=== PATIENT | male | born 1990 | race Caucasian/White ===

== ENCOUNTER 2016-10-01 01:25 | Emergency (ER) | payer SELFPAY ==
--- NOTE | 2016-10-01 03:39 | ED CLINICAL REPORT ---
Clinical Report - Physicians/Mid Levels [facility] [address] [place] [address] 10/01/2016 1:27 Patient: RAYMOND SANCHEZ Time Seen: 02:41 Oct 01 2016. Arrived- By private vehicle. Historian- patient. CPT: ER phys charges level 4 (#[id number]). HISTORY OF PRESENT ILLNESS Chief Complaint: BACK PAIN. It is described as being moderate in degree and in the area of the mid lumbar spine. The quality is noted to be sharp, aching and "pain". Onset- 2 days RECORD CLERK; ( pt complains of lower center back pain, started two days ago). This started yesterday. No history of recent trauma. and it is still present. No bladder dysfunction, bowel dysfunction, sensory loss or motor loss. Patient denies an injury. No other injury. Similar symptoms previously: None. Recent medical care: Not recently seen/assessed. REVIEW OF SYSTEMS No fever, chills, eye irritation, difficulty with urination or urinary frequency. No hematuria, skin rash, sore throat, cough or difficulty breathing. No chest pain, abdominal pain, nausea, vomiting or diarrhea. No black stools. All systems otherwise negative, except as recorded above. PAST HISTORY Has had back injury. He has had prior back pain. Medications: None. Allergies: No Known Drug Allergy. SOCIAL HISTORY Heavy tobacco smoker (cigarette)- less than 1 pack per day. No alcohol use or drug use. ADDITIONAL NOTES The nursing notes have been reviewed. PHYSICAL EXAM Vital Signs: 10/01/2016 01:36 BP: 143/93. HR: 100. RR: 16. O2 saturation: 98%. Temp: 98.4 F. Appearance: Alert. Patient in mild distress. HEENT: Normal external inspection. ENT: Pharynx normal. Neck: Normal inspection. Neck nontender. Painless ROM. CVS: Heart sounds normal. Pulses normal. Respiratory: No respiratory distress. Breath sounds normal. Abdomen: No visible injury. Soft and nontender. Back: Normal inspection. No tenderness. Painless ROM. Skin: Skin warm. Normal skin color. No rash. Extremities: Extremities exhibit normal ROM. Extremities nontender. Neuro: Oriented X 3. Mood/affect normal. No motor deficit. No sensory deficit. Reflexes normal. LABS, X-RAYS, AND EKG Laboratory Tests: UA-Culture if indicated: (SLOANE: 10/01/2016 03:00) ( Mscvd 10/01/2016 03:11) Final results Test Result Flag Units (Reference) URINE COLOR YELLOW URINE APPEARANCE CLEAR URINE GLUCOSE NEGATIVE (NEGATIVE) URINE BILIRUBIN NEGATIVE (NEGATIVE) URINE KETONE NEGATIVE (NEGATIVE) URINE SPECIFIC GRAVITY >= 1.030 (1.010-1.030) URINE PH 6.0 (5.0-8.0) URINE PROTEIN NEGATIVE (NEGATIVE) URINE UROBILINOGEN 0.2 EU/dL (0.2-1.0) URINE NITRITE NEGATIVE (NEGATIVE) URINE BLOOD TRACE-LYSED (NEGATIVE) URINE LEUK ESTERASE POSITIVE (NEGATIVE) URINE RBC 0-1 rbc/hpf (0-1) URINE WBC 25-50 wbc/hpf (0-1) URINE EPITHELIAL CELLS 0-1 EPI/hpf (0-5) URINE BACTERIA MODERATE (2+ TO 3+) (NONE SEEN) URINE COMMENT CULTURE INDICATED URINE CULTURES ARE SET-UP BASED ON THE FOLLOWING CRITERIA:POSITIVE NITRITEPOSITIVE LEUKOCYTE ESTERASEGREATER THAN 10 WHITE BLOOD CELLSMODERATE (2+) OR GREATER BACTERIA CBC w Diff: (SLOANE: 10/01/2016 03:02) [facility]) Final results Test Result Flag Units (Reference) WHITE BLOOD COUNT 10.8 K/uL (4.5-11.5) RED BLOOD COUNT 4.68 M/uL (4.50-5.90) HEMOGLOBIN 13.3 L gm/dL (13.5-17.5) HEMATOCRIT 40.4 L % (41.0-53.0) MEAN CELL VOLUME 86 fL (80-100) MEAN CORPUSCULAR HGB 28 pg (26-34) MEAN CORPUSCULAR HGB CONC 33 g/dL (31-37) RED CELL DISTRIBUTION WIDTH 14.1 % (11.6-14.8) PLATELET COUNT 336 K/uL (150-400) NEUTROPHIL % 43.9 L % (50-75) LYMPH % 42.4 H % (25-40) MONO % 8.8 % (3-14) EOSINOPHIL % 4.6 H % (0-4) BASOPHIL % 0.3 % (0-2) [id number]: (SLOANE: 10/01/2016 03:02) ( MsgRcvd 10/01/2016 03:18) Final results Test Result Flag Units (Reference) C-REACTIVE PROTEIN < 0.2 mg/dL (0.0-0.9) . PROGRESS AND PROCEDURES Course of Care: Levaquin 750 mg po Vicodin 2 po Patient is stable. Patient/family counseled. Disposition: Discharged. Condition: stable. CLINICAL IMPRESSION Acute urinary tract infection with cystitis and pyelonephritis. Nontraumatic lumbar back pain. INSTRUCTIONS No strenuous activity. Drink plenty of fluids. Warnings: GENERAL WARNINGS: Return or contact your physician immediately if your condition worsens or changes unexpectedly, if not improving as expected, or if other problems arise. Prescription Medications: Hydrocodone/APAP 5mg/325mg: take 1 to 2 orally every 6 hours as needed for pain. Dispense fifteen (15). No refills. Levaquin 500 mg: take 1 tab orally every day for 10 days. No refills. Follow-up: Follow up with your doctor in three days. Call for an appointment. Understanding of the discharge instructions verbalized by patient. (Electronically signed by Ammon Schwartz MD 10/04/2016 0:23)
--- NOTE | 2016-10-01 03:39 | ED NURSING NOTES ---
Clinical Report - Nurses [place] [address] [place] [address] 10/01/2016 1:27 Patient: RAYMOND SANCHEZ TRIAGE Triage time 01:36. Acuity: LEVEL 4. Chief Complaint: BACK PAIN. Alert. No acute distress. --01:40 TonyaB, R.N. 01:36 10/01/16. BP: 143/93. HR: 100. RR: 16. O2 saturation: 98%. Temp: 98.4 F. Pain level now 02/06. --01:40 TonyaB R.N. Weight: 81.6 kg. Height/Length: 72 inches. BMI: 24.4. --01:38 TonyaB, R.N. Medications None. --01:38 TonyaB R.N. Allergies No Known Drug Allergy. --01:38 TonZaki R.N. History Arrived by private vehicle. Historian: patient. Accompanied by friend. ( pt complains of lower center back pain, started two days ago). This started yesterday. No history of recent trauma. Treatment EMBEDDED SOFTWARE DEVELOPMENT ENGINEER: None. PAST MEDICAL HX: Tetanus status: up-to-date. Immunizations: up-to-date. SOCIAL HX: Current every day smoker. No alcohol use or drug use. No infectious disease exposure. ABUSE ASSESSMENT: No report of abuse. SELF HARM ASSESSMENT: A self harm assessment was performed. The patient answered "no" to the question "Have you recently felt down, depressed, or hopeless?", "Have you noticed less interest or pleasure in doing things?", "Do you have thoughts of harming or killing yourself?", "Are you here because you tried to hurt yourself?", "Have you ever tried to hurt yourself before today?", "Have you recently had thoughts about harming or killing others?" and "Do you have any dangerous items in your possession?". FALL RISK ASSESSMENT: Fall risk assessment completed. No fall risk identified. NUTRITIONAL RISK ASSESSMENT: The nutritional risk assessment revealed no deficiencies. FUNCTIONAL ASSESSMENT: Functional assessment: no impairments noted. LEARNING NEEDS ASSESSMENT: The learning needs assessment revealed no barriers. SKIN INTEGRITY ASSESSMENT: Skin integrity risk assessment completed. No skin integrity risk identified. --01:40 Castillo Carter Interventions ID band on patient. To treatment room. --01:40 Castillo Carter PHYSICAL ASSESSMENT GENERAL / NEURO / PSYCH: Alert. Oriented X 4. Appears in no acute distress. RESPIRATORY: Respirations not labored. Chest nontender. Breath sounds within normal limits. CVS: Normal heart rate and rhythm. Capillary refill less than 2 seconds. GI / : Abdomen soft and nontender. Bowel sounds within normal limits. EXTREMITIES: Sensation intact in extremities. ROM of extremities within normal limits. BACK: Normal inspection of the neck and back. ROM of neck and back within normal limits. --01:41 Castillo Carter NURSING PROGRESS NOTES 03:56 10/01/2016 Hydrocodone-APAP (Hydrocodone-Acetaminophen) PO 10/650 mg Tablets 2 tab given. Allergies verified, confirmed 5 rights and sedative warning given to the patient. --03:56 Maynor Rosenthal R.N. 03:56 10/01/2016 Levaquin (Levofloxacin) PO 750 mg given. Allergies verified and confirmed 5 rights. --03:56 Maynor Rosenthal R.N. DISPOSITION / DISCHARGE Departure time: 0358. Condition at departure: improved. No learning barriers present. Discharge instructions provided and reviewed with the patient. Reviewed warnings. Reviewed medication(s). Treatments reviewed. Reviewed referrals. Activity restrictions reviewed. Work note given. Patient verbalized understanding. The patient was discharged by the physician. He was discharged home and unaccompanied at time of discharge. He left the Emergency Department ambulatory and via private vehicle. Family member driving. FALL RISK ASSESSMENT: Fall risk assessment completed. No fall risk identified. --03:57 Maynor Rosenthal R.N. 03:56 10/01/16. BP: 138/88. HR: 88. RR: 18. O2 saturation: 98%. Temp: 98 F. Pain level now 6/10. --03:57 Maynor Rosenthal R.N. Locked/Released at 10/01/2016 3:58 by Maynor Rosenthal R.N.
--- NOTE | 2016-10-01 03:39 | ED CLINICAL REPORT ---
Clinical Report - Physicians/Mid Levels [facility] [address] [place] [address] 10/01/2016 1:27 Patient: RAYMOND SANCHEZ Time Seen: 02:41 Oct 01 2016. Arrived- By private vehicle. Historian- patient. CPT: ER phys charges level 4 (#[id number]). HISTORY OF PRESENT ILLNESS Chief Complaint: BACK PAIN. It is described as being moderate in degree and in the area of the mid lumbar spine. The quality is noted to be sharp, aching and "pain". Onset- 2 days NURSE RECEPTIONIST; ( pt complains of lower center back pain, started two days ago). This started yesterday. No history of recent trauma. and it is still present. No bladder dysfunction, bowel dysfunction, sensory loss or motor loss. Patient denies an injury. No other injury. Similar symptoms previously: None. Recent medical care: Not recently seen/assessed. REVIEW OF SYSTEMS No fever, chills, eye irritation, difficulty with urination or urinary frequency. No hematuria, skin rash, sore throat, cough or difficulty breathing. No chest pain, abdominal pain, nausea, vomiting or diarrhea. No black stools. All systems otherwise negative, except as recorded above. PAST HISTORY Has had back injury. He has had prior back pain. Medications: None. Allergies: No Known Drug Allergy. SOCIAL HISTORY Heavy tobacco smoker (cigarette)- less than 1 pack per day. No alcohol use or drug use. ADDITIONAL NOTES The nursing notes have been reviewed. PHYSICAL EXAM Vital Signs: 10/01/2016 01:36 BP: 143/93. HR: 100. RR: 16. O2 saturation: 98%. Temp: 98.4 F. Appearance: Alert. Patient in mild distress. HEENT: Normal external inspection. ENT: Pharynx normal. Neck: Normal inspection. Neck nontender. Painless ROM. CVS: Heart sounds normal. Pulses normal. Respiratory: No respiratory distress. Breath sounds normal. Abdomen: No visible injury. Soft and nontender. Back: Normal inspection. No tenderness. Painless ROM. Skin: Skin warm. Normal skin color. No rash. Extremities: Extremities exhibit normal ROM. Extremities nontender. Neuro: Oriented X 3. Mood/affect normal. No motor deficit. No sensory deficit. Reflexes normal. LABS, X-RAYS, AND EKG Laboratory Tests: UA-Culture if indicated: (SLOANE: 10/01/2016 03:00) ( Mscvd 10/01/2016 03:11) Final results Test Result Flag Units (Reference) URINE COLOR YELLOW URINE APPEARANCE CLEAR URINE GLUCOSE NEGATIVE (NEGATIVE) URINE BILIRUBIN NEGATIVE (NEGATIVE) URINE KETONE NEGATIVE (NEGATIVE) URINE SPECIFIC GRAVITY >= 1.030 (1.010-1.030) URINE PH 6.0 (5.0-8.0) URINE PROTEIN NEGATIVE (NEGATIVE) URINE UROBILINOGEN 0.2 EU/dL (0.2-1.0) URINE NITRITE NEGATIVE (NEGATIVE) URINE BLOOD TRACE-LYSED (NEGATIVE) URINE LEUK ESTERASE POSITIVE (NEGATIVE) URINE RBC 0-1 rbc/hpf (0-1) URINE WBC 25-50 wbc/hpf (0-1) URINE EPITHELIAL CELLS 0-1 EPI/hpf (0-5) URINE BACTERIA MODERATE (2+ TO 3+) (NONE SEEN) URINE COMMENT CULTURE INDICATED URINE CULTURES ARE SET-UP BASED ON THE FOLLOWING CRITERIA:POSITIVE NITRITEPOSITIVE LEUKOCYTE ESTERASEGREATER THAN 10 WHITE BLOOD CELLSMODERATE (2+) OR GREATER BACTERIA CBC w Diff: (SLOANE: 10/01/2016 03:02) ( [facility] [place]) Final results Test Result Flag Units (Reference) WHITE BLOOD COUNT 10.8 K/uL (4.5-11.5) RED BLOOD COUNT 4.68 M/uL (4.50-5.90) HEMOGLOBIN 13.3 L gm/dL (13.5-17.5) HEMATOCRIT 40.4 L % (41.0-53.0) MEAN CELL VOLUME 86 fL (80-100) MEAN CORPUSCULAR HGB 28 pg (26-34) MEAN CORPUSCULAR HGB CONC 33 g/dL (31-37) RED CELL DISTRIBUTION WIDTH 14.1 % (11.6-14.8) PLATELET COUNT 336 K/uL (150-400) NEUTROPHIL % 43.9 L % (50-75) LYMPH % 42.4 H % (25-40) MONO % 8.8 % (3-14) EOSINOPHIL % 4.6 H % (0-4) BASOPHIL % 0.3 % (0-2) [id number]: (SLOANE: 10/01/2016 03:02) ( MsgRcvd 10/01/2016 03:18) Final results Test Result Flag Units (Reference) C-REACTIVE PROTEIN < 0.2 mg/dL (0.0-0.9) . PROGRESS AND PROCEDURES Course of Care: Levaquin 750 mg po Vicodin 2 po Patient is stable. Patient/family counseled. Disposition: Discharged. Condition: stable. CLINICAL IMPRESSION Acute urinary tract infection with cystitis and pyelonephritis. Nontraumatic lumbar back pain. INSTRUCTIONS No strenuous activity. Drink plenty of fluids. Warnings: GENERAL WARNINGS: Return or contact your physician immediately if your condition worsens or changes unexpectedly, if not improving as expected, or if other problems arise. Prescription Medications: Hydrocodone/APAP 5mg/325mg: take 1 to 2 orally every 6 hours as needed for pain. Dispense fifteen (15). No refills. Levaquin 500 mg: take 1 tab orally every day for 10 days. No refills. Follow-up: Follow up with your doctor in three days. Call for an appointment. Understanding of the discharge instructions verbalized by patient. (Electronically signed by Ammon Schwartz MD 10/04/2016 0:23)
--- NOTE | 2016-10-01 03:39 | ED ORDER SUMMARY ---
..... Patient: RAYMOND SANCHEZ OrderSheet [facility] VisitID: [id number] [place] [address] 26y, M Registration Date/Time: 10/01/2016 ORDER SHEET Weight: 81.6 kg Allergies: No Known Drug Allergy GENERAL ORDERS: Chest 2V Urgent (02:46 10/01/2016 Gerson LOPEZ) (Ack 2:52 Sravani) (3:02 Jazzy) GC/Chlamydia, Urine (Urine, Clean Catch) (cup) Urgent (02:46 10/01/2016 Gerson LOPEZ) (Ack 2:52 Sravani) (3:07 TBowen R.N.) UA-Culture if indicated Urgent (02:47 10/01/2016 Gerson LOPEZ) (Ack 2:52 Sravani) (3:07 TBjamalen R.N.) CBC w Diff Urgent (02:47 10/01/2016 Gerson LOPEZ) (Ack 2:52 Sravani) (3:07 TBowen R.N.) CRP Urgent (02:47 10/01/2016 Gerson LOPEZ) (Ack 2:52 Sravani) (3:07 TBowen R.N.) MEDICATION ORDERS: Levaquin PO 750 mg (NOW) (03:36 10/01/2016 Gerson LOPEZ) (3:56 Marky R.N.) Hydrocodone-APAP PO 10/650 mg (NOW) (03:37 10/01/2016 Gerson LOPEZ) (3:56 Marky R.N.) IV FLUIDS: ORDER SHEET NOTES: [Electronically signed by Maynor Rosenthal R.N. (03:58 10/01/2016)] [Electronically signed by Ammon Schwartz MD (00:23 10/04/2016)] [Electronically locked/signed by Maynor Rosenthal R.N. (03:58 10/01/2016)]
--- NOTE | 2016-10-01 03:39 | ED ORDER SUMMARY ---
..... Patient: RAYMOND SANCHEZ OrderSheet [facility] VisitID: [id number] [place] [address] 26y, M Registration Date/Time: 10/01/2016 ORDER SHEET Weight: 81.6 kg Allergies: No Known Drug Allergy GENERAL ORDERS: Chest 2V Urgent (02:46 10/01/2016 Gerson LOPEZ) (Ack 2:52 Sravani) (3:02 Jazzy) GC/Chlamydia, Urine (Urine, Clean Catch) (cup) Urgent (02:46 10/01/2016 Gerson LOPEZ) (Ack 2:52 Sravani) (3:07 TBowen R.N.) UA-Culture if indicated Urgent (02:47 10/01/2016 Gerson LOPEZ) (Ack 2:52 Sravani) (3:07 TBjamalen R.N.) CBC w Diff Urgent (02:47 10/01/2016 Gerson LOPEZ) (Ack 2:52 Sravani) (3:07 TBowen R.N.) CRP Urgent (02:47 10/01/2016 Gerson LOPEZ) (Ack 2:52 Sravani) (3:07 TBowen R.N.) MEDICATION ORDERS: Levaquin PO 750 mg (NOW) (03:36 10/01/2016 Gerson LOPEZ) (3:56 Marky R.N.) Hydrocodone-APAP PO 10/650 mg (NOW) (03:37 10/01/2016 Gerson LOPEZ) (3:56 Marky R.N.) IV FLUIDS: ORDER SHEET NOTES: [Electronically signed by Maynor Rosenthal R.N. (03:58 10/01/2016)] [Electronically signed by Ammon Schwartz MD (00:23 10/04/2016)] [Electronically locked/signed by Maynor Rosenthal R.N. (03:58 10/01/2016)]
--- NOTE | 2016-10-01 03:39 | ED NURSING NOTES ---
Clinical Report - Nurses [place] [address] [place] [address] 10/01/2016 1:27 Patient: RAYMOND SANCHEZ TRIAGE Triage time 01:36. Acuity: LEVEL 4. Chief Complaint: BACK PAIN. Alert. No acute distress. --01:40 TonyaB, R.N. 01:36 10/01/16. BP: 143/93. HR: 100. RR: 16. O2 saturation: 98%. Temp: 98.4 F. Pain level now 02/06. --01:40 TonyaB R.N. Weight: 81.6 kg. Height/Length: 72 inches. BMI: 24.4. --01:38 TonyaB, R.N. Medications None. --01:38 TonyaB R.N. Allergies No Known Drug Allergy. --01:38 TonZaki R.N. History Arrived by private vehicle. Historian: patient. Accompanied by friend. ( pt complains of lower center back pain, started two days ago). This started yesterday. No history of recent trauma. Treatment MEDICAL SALES: None. PAST MEDICAL HX: Tetanus status: up-to-date. Immunizations: up-to-date. SOCIAL HX: Current every day smoker. No alcohol use or drug use. No infectious disease exposure. ABUSE ASSESSMENT: No report of abuse. SELF HARM ASSESSMENT: A self harm assessment was performed. The patient answered "no" to the question "Have you recently felt down, depressed, or hopeless?", "Have you noticed less interest or pleasure in doing things?", "Do you have thoughts of harming or killing yourself?", "Are you here because you tried to hurt yourself?", "Have you ever tried to hurt yourself before today?", "Have you recently had thoughts about harming or killing others?" and "Do you have any dangerous items in your possession?". FALL RISK ASSESSMENT: Fall risk assessment completed. No fall risk identified. NUTRITIONAL RISK ASSESSMENT: The nutritional risk assessment revealed no deficiencies. FUNCTIONAL ASSESSMENT: Functional assessment: no impairments noted. LEARNING NEEDS ASSESSMENT: The learning needs assessment revealed no barriers. SKIN INTEGRITY ASSESSMENT: Skin integrity risk assessment completed. No skin integrity risk identified. --01:40 Castillo Carter Interventions ID band on patient. To treatment room. --01:40 Castillo Carter PHYSICAL ASSESSMENT GENERAL / NEURO / PSYCH: Alert. Oriented X 4. Appears in no acute distress. RESPIRATORY: Respirations not labored. Chest nontender. Breath sounds within normal limits. CVS: Normal heart rate and rhythm. Capillary refill less than 2 seconds. GI / : Abdomen soft and nontender. Bowel sounds within normal limits. EXTREMITIES: Sensation intact in extremities. ROM of extremities within normal limits. BACK: Normal inspection of the neck and back. ROM of neck and back within normal limits. --01:41 Castillo Carter NURSING PROGRESS NOTES 03:56 10/01/2016 Hydrocodone-APAP (Hydrocodone-Acetaminophen) PO 10/650 mg Tablets 2 tab given. Allergies verified, confirmed 5 rights and sedative warning given to the patient. --03:56 Maynor Rosenthal R.N. 03:56 10/01/2016 Levaquin (Levofloxacin) PO 750 mg given. Allergies verified and confirmed 5 rights. --03:56 Maynor Rosenthal R.N. DISPOSITION / DISCHARGE Departure time: 0358. Condition at departure: improved. No learning barriers present. Discharge instructions provided and reviewed with the patient. Reviewed warnings. Reviewed medication(s). Treatments reviewed. Reviewed referrals. Activity restrictions reviewed. Work note given. Patient verbalized understanding. The patient was discharged by the physician. He was discharged home and unaccompanied at time of discharge. He left the Emergency Department ambulatory and via private vehicle. Family member driving. FALL RISK ASSESSMENT: Fall risk assessment completed. No fall risk identified. --03:57 Maynor Rosenthal R.N. 03:56 10/01/16. BP: 138/88. HR: 88. RR: 18. O2 saturation: 98%. Temp: 98 F. Pain level now 6/10. --03:57 Maynor Rosenthal R.N. Locked/Released at 10/01/2016 3:58 by Maynor Rosenthal R.N.
--- NOTE | 2016-10-01 10:42 | DIAGNOSTIC IMAGING REPORT ---
PROCEDURE: XR CHEST 2 VIEW INDICATION: COUGH TECHNIQUE: PA and lateral view. COMPARISON: Chest x-ray 01/12/2013 FINDINGS: Lungs are clear. Hyperinflation. Cardiovascular structures are normal. Bony thorax is unremarkable. No significant interval change. IMPRESSION: 1. No acute changes 2. Hyperinflation
--- NOTE | 2016-10-04 00:24 | ED MED RECONCILIATION SUMMARY ---
Patient: RAYMOND SANCHEZ Medication Reconciliation Report [facility] VisitID: [id number] [place] [address] 26y, M Registration Date/Time: 10/01/2016 Weight: 81.6 kg Height/Length: 72 in. BMI: 24.4 ALLERGIES: No Known Drug Allergy The patient's Home Medications are listed below: NONE. The source(s) of the original Home Medication information: Not obtained. The following Medications were given to the patient in the Emergency Department: Hydrocodone-APAP [PO] PO 2 tab, administered: 10/01/2016 3:56:00 AM Levaquin [PO] PO 750 mg, administered: 10/01/2016 3:56:00 AM The following Medications were prescribed to the patient: Hydrocodone/APAP 5mg/325mg: take 1 to 2 orally every 6 hours as needed for pain. Dispense fifteen (15). No refills. -- mAmon Schwartz MD Levaquin 500 mg: take 1 tab orally every day for 10 days. No refills. -- Ammon Schwartz MD
--- NOTE | 2016-10-04 00:24 | ED DISCHARGE INSTRUCTIONS ---
Patient: RAYMOND SANCHEZ General Instructions [facility] VisitID: [id number] [place] [address] 26y, M Registration Date/Time: 10/01/2016 Acute urinary tract infection with cystitis and pyelonephritis. Nontraumatic lumbar back pain. INSTRUCTIONS No strenuous activity. Drink plenty of fluids. Warnings: GENERAL WARNINGS: Return or contact your physician immediately if your condition worsens or changes unexpectedly, if not improving as expected, or if other problems arise. Prescription Medications: Hydrocodone/APAP 5mg/325mg: take 1 to 2 orally every 6 hours as needed for pain. Dispense fifteen (15). No refills. Levaquin 500 mg: take 1 tab orally every day for 10 days. No refills. Follow-up: Follow up with your doctor in three days. Call for an appointment. Understanding of the discharge instructions verbalized by patient. ADDITIONAL INFORMATION Back Pain [Acute Or Chronic] Back pain is usually caused by an injury to the muscles or ligaments of the spine. Sometimes the disks that separate each bone in the spine may bulge and cause pain by pressing on a nearby nerve. Back pain may also appear after a sudden twisting/bending force (such as in a car accident), after a simple awkward movement, or lifting something heavy with poor body positioning. In either case, muscle spasm is often present and adds to the pain. Acute back pain usually gets better in one to two weeks. Back pain related to disk disease, arthritis in the spinal joints or spinal stenosis (narrowing of the spinal canal) can become chronic and last for months or years. Unless you had a physical injury (for example, a car accident or fall) X-rays are usually not ordered for the initial evaluation of back pain. If pain continues and does not respond to medical treatment, x-rays and other tests may be performed at a later time. Home Care: You may need to stay in bed the first few days. But, as soon as possible, begin sitting or walking to avoid problems with prolonged bed rest (muscle weakness, worsening back stiffness and pain, blood clots in the legs). When in bed, try to find a position of comfort. A firm mattress is best. Try lying flat on your back with pillows under your knees. You can also try lying on your side with your knees bent up towards your chest and a pillow between your knees. Avoid prolonged sitting. This puts more stress on the lower back than standing or walking. During the first two days after injury, apply an ICE PACK to the painful area for 20 minutes every 2-4 hours. This will reduce swelling and pain. HEAT (hot shower, hot bath or heating pad) works well for muscle spasm. You can start with ice, then switch to heat after two days. Some patients feel best alternating ice and heat treatments. Use the one method that feels the best to you. You may use acetaminophen (Tylenol) or ibuprofen (Motrin, Advil) to control pain, unless another pain medicine was prescribed. [NOTE: If you have chronic liver or kidney disease or ever had a stomach ulcer or GI bleeding, talk with your doctor before using these medicines.] Be aware of safe lifting methods and do not lift anything over 15 pounds until all the pain is gone. Follow Up with your doctor or this facility if your symptoms do not start to improve after one week. Physical therapy may be needed. [NOTE: If X-rays were taken, they will be reviewed by a radiologist. You will be notified of any new findings that may affect your care.] Get Prompt Medical Attention if any of the following occur: Pain becomes worse or spreads to your legs Weakness or numbness in one or both legs Loss of bowel or bladder control Numbness in the groin or genital area Bladder Infection,Male (Adult) A bladder infection ("cystitis" or "UTI") usually causes a constant urge to urinate, and a burning when passing urine. Urine may be cloudy, smelly or dark. There may be also be pain in the lower abdomen. Cystitis in males is not common. It may be caused by a partial blockage in the urinary system that keeps the bladder from emptying completely. This is most often related to an enlarged prostate gland. Home Care: Drink lots of fluids (at least 6-8 glasses a day). This will flush the bacteria out of your bladder. Avoid sexual intercourse until your symptoms are gone. Avoid caffeine, alcohol, and spicy foods. They could irritate the bladder. A bladder infection is treated with antibiotics. You may also be given Pyridium (generic - phenazopyridine) to reduce burning with urination. This will cause urine to become a bright orange color, which can stain clothing. Follow Up with your doctor or this facility if ALL symptoms have not cleared within five days. It is important to keep your follow up appointment to discuss with your doctor the need for further tests of the urinary tract. Get Prompt Medical Attention if any of the following occur: Fever of 100.4F (38C) or higher, or as directed by your healthcare provider No improvement by the third day of treatment Increasing back or abdominal pain Repeated vomiting; unable to keep medicine down Weakness, dizziness or fainting Levofloxacin Oral tablet What is this medicine? LEVOFLOXACIN (slime tpoher ERNIE villareal) is a quinolone antibiotic. It is used to treat certain kinds of bacterial infections. It will not work for colds, flu, or other viral infections. How should I use this medicine? Take this medicine by mouth with a full glass of water. Follow the directions on the prescription label. This medicine can be taken with or without food. Take your medicine at regular intervals. Do not take your medicine more often than directed. Do not skip doses or stop your medicine early even if you feel better. Do not stop taking except on your doctor's advice. A special MedGuide will be given to you by the pharmacist with each prescription and refill. Be sure to read this information carefully each time. Talk to your lab support technician regarding the use of this medicine in children. While this drug may be prescribed for children as young as 6 months for selected conditions, precautions do apply. What side effects may I notice from receiving this medicine? Side effects that you should report to your doctor or health care navigator as soon as possible: -allergic reactions like skin rash or hives, swelling of the face, lips, or tongue -changes in vision -confusion, nightmares or hallucinations -difficulty breathing -irregular heartbeat, chest pain -joint, muscle or tendon pain -pain or difficulty passing urine -persistent headache with or without blurred vision -redness, blistering, peeling or loosening of the skin, including inside the mouth -seizures -unusual pain, numbness, tingling, or weakness -vaginal irritation, discharge Side effects that usually do not require medical attention (report to your doctor or health care navigator if they continue or are bothersome): -diarrhea -dry mouth -headache -stomach upset, nausea -trouble sleeping What may interact with this medicine? Do not take this medicine with any of the following medications: - arsenic trioxide - chloroquine - droperidol - medicines for irregular heart rhythm like amiodarone, disopyramide, dofetilide, flecainide, quinidine, procainamide, sotalol - some medicines for depression or mental problems like phenothiazines, pimozide, and ziprasidone This medicine may also interact with the following medications: - amoxapine -antacids - cisapride - dairy products - didanosine (ddI) buffered tablets or powder - haloperidol - multivitamins -NSAIDS, medicines for pain and inflammation, like ibuprofen or naproxen - retinoid products like tretinoin or isotretinoin - risperidone - some other antibiotics like clarithromycin or erythromycin - sucralfate - theophylline - warfarin What if I miss a dose? If you miss a dose, take it as soon as you remember. If it is almost time for your next dose, take only that dose. Do not take double or extra doses. Where should I keep my medicine? Keep out of the reach of children. Store at room temperature between 15 and 30 degrees C (59 and 86 degrees F). Keep in a tightly closed container. Throw away any unused medicine after the expiration date. What should I tell my health care provider before I take this medicine? They need to know if you have any of these conditions: cerebral disease irregular heartbeat kidney disease seizure disorder an unusual or allergic reaction to levofloxacin, other antibiotics or medicines, foods, dyes, or preservatives or trying to get breast-feeding What should I watch for while using this medicine? Tell your doctor or health care navigator if your symptoms do not improve or if they get worse. Drink several glasses of water a day and cut down on drinks that contain caffeine. You must not get dehydrated while taking this medicine. You may get drowsy or dizzy. Do not drive, use machinery, or do anything that needs mental alertness until you know how this medicine affects you. Do not sit or stand up quickly, especially if you are an older patient. This reduces the risk of dizzy or fainting spells. This medicine can make you more sensitive to the sun. Keep out of the sun. If you cannot avoid being in the sun, wear protective clothing and use a sunscreen. Do not use sun lamps or tanning beds/booths. Contact your doctor if you get a sunburn. If you are a diabetic monitor your blood glucose carefully. If you get an unusual reading stop taking this medicine and call your doctor right away. Do not treat diarrhea with [id number] products. Contact your doctor if you have diarrhea that lasts more than 2 days or if the diarrhea is severe and watery. Avoid antacids, calcium, iron, and zinc products for 2 hours before and 2 hours after taking a dose of this medicine. You have been given the following additional information: Back Pain (Acute Or Chronic) Bladder Infection, Male (Adult) Levofloxacin Oral tablet No strenuous activity. (Electronically signed by Ammon Schwartz MD 10/04/2016 0:23)
--- NOTE | 2016-10-04 00:24 | ED MAR SUMMARY ---
..... Medication Administration Record [facility] [address] [place] [address] Patient: RAYMOND SANCHEZ Visit ID: [id number] 26y, M Weight: 81.6 kg Height/Length: 72 in BMI: 24.4 ALLERGIES: No Known Drug Allergy Given 03:56 10/01/2016 Maynor Rosenthal R.N. Medication Administered: LEVAQUIN [PO] (LEVOFLOXACIN), Dose: 750 mg PO. Medication Ordered: Levaquin PO 750 mg (NOW). Given 03:56 10/01/2016 Maynor Rosenthal R.N. Medication Administered: HYDROCODONE-APAP [PO] (HYDROCODONE-ACETAMINOPHEN), Dose: 2 tab 10/650 mg Tablets PO. Medication Ordered: Hydrocodone-APAP PO 10/650 mg (NOW).
--- NOTE | 2016-10-04 00:24 | ED MED RECONCILIATION SUMMARY ---
Patient: RAYMOND SANCHEZ Medication Reconciliation Report [facility] VisitID: [id number] [place] [address] 26y, M Registration Date/Time: 10/01/2016 Weight: 81.6 kg Height/Length: 72 in. BMI: 24.4 ALLERGIES: No Known Drug Allergy The patient's Home Medications are listed below: NONE. The source(s) of the original Home Medication information: Not obtained. The following Medications were given to the patient in the Emergency Department: Hydrocodone-APAP [PO] PO 2 tab, administered: 10/01/2016 3:56:00 AM Levaquin [PO] PO 750 mg, administered: 10/01/2016 3:56:00 AM The following Medications were prescribed to the patient: Hydrocodone/APAP 5mg/325mg: take 1 to 2 orally every 6 hours as needed for pain. Dispense fifteen (15). No refills. -- Ammon Schwartz MD Levaquin 500 mg: take 1 tab orally every day for 10 days. No refills. -- Ammon Schwartz MD
--- NOTE | 2016-10-04 00:24 | ED MAR SUMMARY ---
..... Medication Administration Record [facility] [address] [place] [address] Patient: RAYMOND SANCHEZ Visit ID: [id number] 26y, M Weight: 81.6 kg Height/Length: 72 in BMI: 24.4 ALLERGIES: No Known Drug Allergy Given 03:56 10/01/2016 Maynor Rosenthal R.N. Medication Administered: LEVAQUIN [PO] (LEVOFLOXACIN), Dose: 750 mg PO. Medication Ordered: Levaquin PO 750 mg (NOW). Given 03:56 10/01/2016 Maynor Rosenthal R.N. Medication Administered: HYDROCODONE-APAP [PO] (HYDROCODONE-ACETAMINOPHEN), Dose: 2 tab 10/650 mg Tablets PO. Medication Ordered: Hydrocodone-APAP PO 10/650 mg (NOW).
== END 2016-10-01 03:55 | disposition home or self-care (01) ==
LOC: ED SRH 01:25
DX: N30.00 Acute cystitis without hematuria (principal); N10 Acute pyelonephritis; M54.5 Low back pain
CPT/HCPCS: 90004; 90469; 91227; 91228; 91585; 95059